=== PATIENT | male | born 1950 | race Caucasian/White ===

== ENCOUNTER 2024-11-10 13:26 | Outpatient (RCR) | payer MEDICARE, SELFPAY ==
--- NOTE | 2024-11-10 14:09 | PT.OIERPT ---
PT OP Initial Eval Patient Information Outpatient Physical Therapy Treatment Date: 11/10/24 Visit Reasons: bilateral knee pain Medical Diagnosis: Left Knee Pain Treatment Dx #1: Left Knee Pain Start of Care: 11/10/24 Date of Onset: 1 month ago Smoking Status Smoking Status: Never smoker Initial Assessment Subjective: Pt is a 74 y/o male reports of bilateral knee pain since he strained it ~ 1 month ago. Pt's right knee is better now, however, left knee continues to hurt 5/10 pain. Pt's left knee seems to give out with activities. Pt has limitation with standing, walking, chores, balance, self care, and recreational activities. Pt is pending knee MRI on Thursday in [place]. Objective: Left Knee AROM: all motions are WNL Left Knee MMTs: grossly 4-/5 Left Hip MMTs: grossly 3+/5 Special Test (+) ant knee compression test Assessment: Pt demonstrate left knee pain leading to difficulty with ADLs. Pt will attempt physical therapy if pain persist Pt will be refer back to provider for further consultation. Short Term and Revenue Specialist Goals 1) Decrease left knee pain to 2/10 in 6 wks to be able to walk more than 30 mins 2) Increase left knee MMTs grossly to 4/5 in 6 wks to be able to perform stairs and steps 3) Increase left hip MMTs grossly to 4-/5 in 6 wks to be able to perform recreational activities 4) Indep with HEP Treatment Plan 1) Manual Therapy 2) Therapeutic Activities 3) Therapeutic Exercises 4) Modalities (ice, heat) 5) Balance Training Frequency and Duration: 2 x wk for 6 wks Certification Dates: 11/10/24 to 02/10/25 Procedure Charges OP PT Eval Mod Complex 30 minutes: Yes
== END 2024-11-21 23:59 | disposition home or self-care (01) ==
LOC: CPTX 13:26
PROVIDERS: PCP Physician Assistant Medical; Referring Provider Physician Assistant Medical; Visit Provider Physician Assistant Medical
DX: M25.562 Pain in left knee (principal); M25.561 Pain in right knee
CPT/HCPCS: 97162

== ENCOUNTER 2024-11-24 16:00 | Outpatient (RCR) | payer MEDICARE, SELFPAY ==
--- NOTE | 2024-11-22 16:02 | PT.ODAYNRPT ---
PT Outpatient Daily Note OP Daily Note Outpatient Physical Therapy Treatment Date: 11/22/24 Visit Reasons: BILATERAL KNEE PAIN Subjective: Pt's knee is still unstable. Pt mentioned he completed the MRI but does not know the results. Pt has a follow up appt with on 11/30/24. Objective: Please see flow chart for list of ther ex performed Assessment: tolerate exercises with minimal pain Plan: Continue with PT Length of Time (minutes) of Treatment: 30 Minutes Procedure Charges Therapeutic Exercise 30 minutes: Yes
--- NOTE | 2024-11-24 16:15 | PTNOTE_ITS ---
PT OP Progress/Discharge Note Date of Service: 11/24/24 Progress Note/DC Note Progress Note/Discharge Note: DC Note Patient Information Visit Reasons: BILATERAL KNEE PAIN Medical Diagnosis: Left Knee Pain Treatment Dx #1: Left Knee Pain Service Discharge Date: 11/24/24 Status Subjective: Pt mentioned he continues to have knee pain L>R. As of lately Pt's right knee has felt better. Due to pain Pt has limitation with recreational activities, ba shaheed, self care, walking, and running. Pt completed MRI and will be in results. Objective: Left Knee AROM: all motions are WNL Left Knee MMTs: grossly 4-/5 Left Hip MMTs: grossly 3+/5 Assessment: Pt continues to have left knee pain leading to difficulty with ADLs.Pt brought in MRI results on his last session. Based on MRI results Pt will not benefit from physical therapy due to known meniscal tears and will be d/c from care. Pt advised to follow up with PCP for further ortho consultation. Pt gave verbal understanding and consent; thank you for your referrals. Plan: D/C and follow up with PCP Procedure Charges Neuro Re-Education 15 Minutes: Yes
== END 2024-12-21 23:59 | disposition home or self-care (01) ==
LOC: CPTX 16:00
PROVIDERS: PCP Physician Assistant Medical; Referring Provider Physician Assistant Medical; Visit Provider Physician Assistant Medical
DX: M25.562 Pain in left knee (principal); M25.561 Pain in right knee; R26.2 Difficulty in walking, not elsewhere classified; R26.89 Other abnormalities of gait and mobility
CPT/HCPCS: 97110; 97112